=== PATIENT | female | born 1985 | race African-American/Black ===

== ENCOUNTER 2019-06-21 13:00 | Emergency (ER) | payer SELFPAY ==
[~2019-06-21] VITALS: Ht 157.5 cm; Wt 90.7 kg
[~2019-06-21 13:00] MED LIST: ALBUTEROL SULF8.5 GM INH; AZITHROMYCIN250 MG ORAL; CEPHALEXIN500 MG ORAL
[2019-06-21 13:24] VITALS: BP 126/86
--- NOTE | 2019-06-21 13:49 | Emergency Room Report ---
History of Present Illness General Chief Complaint: Lower Back Pain or Injury Source: Patient Present Illness HPI 33-year-old female presents to the emergency department complaining of 6 out of 10 severity progressive left lower lumbar back and left gluteal pain with tenderness since yesterday. Patient reports she slipped on some wet floor yesterday and she had to balance and grab herself before she fell. Patient reports that she had acute onset of her symptoms afterwards which have progressed overnight. Patient states she took some Motrin with minimal relief. She reports pain is exacerbated upon lying flat or attempting to bend forward. She denies saddle anesthesia, urinary retention or incontinence. Patient denies paresthesias in the lower extremities. Patient denies midline neck or back pain. No other aggravating or relieving factors at this time. She denies . She denies suspicion of . She Denies previous back injuries. COVID-19 risk:Travel to affect: No Has patient experienced ponce: No Allergies: Coded Allergies: No Known Allergies (Unverified , 06/21/19) Patient History Past Medical History: see triage record Past Surgical History: none Pertinent Family History: none Last Menstrual Period: 06/11/19 Now: No Reviewed Nursing Documentation: PMH: Agreed; PSxH: Agreed Nursing Documentation-PMH Past Medical History: No History, Except For Hx Hypertension: Yes Review of Systems All Other Systems: negative except mentioned in HPI Physical Exam Vital Signs Date Time Temp Pulse Resp B/P (MAP) Pulse Ox O2 Delivery O2 Flow Rate FiO2 06/21/19 13:24 98.6 77 15 126/86 (99) 99 Room Air Sp02 EP Interpretation: reviewed, normal General Appearance: no apparent distress, alert, GCS 15, non-toxic Head: normocephalic, atraumatic Eyes: bilateral eye normal inspection, bilateral eye PERRL ENT: hearing grossly normal, normal voice Neck: full range of motion Respiratory: lungs clear, normal breath sounds, speaking full sentences Cardiovascular #1: regular rate, rhythm Gastrointestinal: non tender, soft, non-distended Genitourinary: normal inspection, no CVA tenderness Musculoskeletal: normal range of motion, gait/station normal, tender - Left paraspinal and upper gluteal TTP, FROM with exacerbation of pain temporarily in certain flexed positions, no LE weakness, pt. is NVI, no erythema, midline bony ttp, step-offs or obvious deformity. Neurologic: alert, motor strength/tone normal, oriented x3, sensory intact, responsive, speech normal Psychiatric: judgement/insight normal Skin: normal color Lymphatic: no adenopathy Medical Decision Making PA Attestation Dr. Crenshaw Is my supervising Physician whom patient management has been discussed with. Diagnostic Impression: Primary Impression: Lumbosacral strain Qualified Codes: S39.012A - Strain of muscle, fascia and tendon of lower back , initial encounter ER Course 33-year-old female presents to the emergency department complaining of 6 out of 10 severity progressive left lower lumbar back and left gluteal pain with tenderness since yesterday. Patient reports she slipped on some wet floor yesterday and she had to balance and grab herself before she fell. Patient reports that she had acute onset of her symptoms afterwards which have progressed overnight. Patient states she took some Motrin with minimal relief. She reports pain is exacerbated upon lying flat or attempting to bend forward. She denies saddle anesthesia, urinary retention or incontinence. Patient denies paresthesias in the lower extremities. Patient denies midline neck or back pain. No other aggravating or relieving factors at this time. She denies . She denies suspicion of . She Denies previous back injuries. Ddx considered: epidural abscess, fracture, sprain/strain, meningitis, spinal chord injury, sciatica, cauda equina, Pyelonephritis, renal calculi just to name a few. Vital signs reviewed and are WNL during ED visit. Pt. is afebrile with no signs of infection No new symptoms, and denies recent trauma. No saddle anesthesia noted, Pt. denies incontinence Neurovascular is intact ROM is limited due to pain- exacerbated with forward flexion * Mild Tenderness to palpation to paraspinal muscles of the left lower back without midline tenderness. *Pt. describes pain today as moderate and radiates across the lower back. ORDERS: -Urine HCG: Negative INTERVENTIONS: -600IBU PO -I do not identify an emergent condition at this time. With current presentation , pt. is stable for close outpatient follow up and conservative treatment. D/ w pt. to return promptly to ED with worsening or new symptoms.- Pt. verbalizes' understanding and agreement with proposed treatment plan. DISCHARGE: At this time pt. is stable for d/c to home. Will provide printed patient care instructions, and any necessary prescriptions. Care plan and follow up instructions have been discussed with the patient prior to discharge. Labs Test 06/21/19 13:30 Urine HCG, Qualitative Negative (NEGATIVE) Last Vital Signs Date Time Temp Pulse Resp B/P (MAP) Pulse Ox O2 Delivery O2 Flow Rate FiO2 06/21/19 13:24 98.6 77 15 126/86 (99) 99 Room Air Disposition: HOME, SELF-CARE Condition: Stable Scripts Ibuprofen* (MOTRIN*) 600 Mg Tablet 600 MG ORAL THREE TIMES A DAY, #30 TAB 0 Refills Prov: Jo Daniel 06/21/19 Methocarbamol* (ROBAXIN-750*) 750 Mg Tablet 750 MG PO TID for 7 Days, #21 TAB 0 Refills Prov: Jo Daniel 06/21/19 Lidocaine Patch* (Lidoderm Patch*) 1 Each Adh..patch 1 PATCH TOPIC DAILY, #30 PATCH 0 Refills Patch(es) may remain in place for up to 12 hours in any 24-hour period. Prov: Jo Daniel 06/21/19 Referrals: Lali Walters. [facility] Departure Forms: Return to Work Return to Work Date: Jun 25, 2019 Work Restrictions: None Other Restrictions: May return Sooner if Symptoms have resolved. Return to Full Activity: Jun 25, 2019 Patient Instructions: Lumbosacral Strain Additional Instructions: Take medications as directed. Do not drink alcohol, drive, or operate heavy machinery while taking Robaxin ( Muscle Relaxers) as this may cause drowsiness. Follow up with a Primary Care Provider in 3-5 days, even if your symptoms have resolved. --Please review list of primary care clinics, if you do not already have a primary care provider Return sooner to ED if new symptoms occur, or current symptoms become worse. - Please note that this Emergency Department Report was dictated using [employer] technology software, occasionally this can lead to erroneous entry secondary to interpretation by the dictation equipment. Jo Daniel Jun 21, 2019 13:49
[2019-06-21] MEDS ORDERED: IBUPROFEN600 MG ORAL (13:51)
[2019-06-21] MEDS ORDERED: LIDODERM700 M1 TOPIC (13:51)
[2019-06-21] MEDS ORDERED: ROBAXIN-750750 MG PO (13:51)
--- NOTE | 2019-06-21 14:00 | NUR ---
ED Nurse Note: Pt walked in from home c/o lower back and left knee pain since yesterday. Pt denies fall/injury. Pt reports trying to prevent a fall, so she hurt herself. Respirations even and unalbored on room air.
[2019-06-21 14:15] VITALS: BP 123/84
--- NOTE | 2019-06-21 14:15 | NUR ---
ER DISCHARGE NOTE: Patient is cleared to be discharged per ERMD, pt is aox4, on room air, with stable vital signs as documented. pt was given dc and prescription instructions and was able to verbalize understanding, pt id band removed. pt is able to ambulate with steady gait. pt took all belongings.
== END 2019-06-21 14:15 | disposition home or self-care (01) ==
LOC: EMR 13:51
DX: S39.012A Strain of muscle, fascia and tendon of lower back, initial encounter (principal); W18.40XA Slipping, tripping and stumbling without falling, unspecified, initial encounter; Y92.9 Unspecified place or not applicable; I10 Essential (primary) hypertension
CPT/HCPCS: 81025; 99282

== ENCOUNTER 2019-11-17 10:39 | Emergency (ER) | payer MEDICAID, OTHER ==
[~2019-11-17] VITALS: Ht 157.5 cm; Wt 97.5 kg
[~2019-11-17 10:39] MED LIST changes: +IBUPROFEN600 MG ORAL; +LIDODERM700 M1 TOPIC; +ROBAXIN-750750 MG PO
[2019-11-17 10:58] VITALS: BP 134/75
[2019-11-17] MEDS ORDERED: LIDODERM700 M1 TOPIC (11:10)
[2019-11-17] MEDS ORDERED: ROBAXIN-750750 MG PO (11:10)
[2019-11-17] MEDS ORDERED: IBUPROFEN600 M1 ORAL (11:10)
[2019-11-17] MEDS ORDERED: TYLENOL325 MG ORAL (11:10)
--- NOTE | 2019-11-17 11:11 | Emergency Room Report ---
History of Present Illness General Chief Complaint: Pain Source: Patient Present Illness HPI 34-year-old female no past medical history no surgical history presents with a slip and fall she did not officially fall she caught herself, she slipped on water yesterday, she endorses sharp knee pain, left lower back pain aggravated with movement alleviated threat severity is moderate, intermittent no perineal numbness no weakness, no bowel bladder retention/incontinence patient presents for evaluation and treatment Allergies: Coded Allergies: No Known Allergies (Unverified , 06/21/19) COVID-19 Screening Contact w/high risk pt: No Experienced COVID-19 symptoms?: No COVID-19 Testing performed 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 Patient History Past Medical History: see triage record Last Menstrual Period: 11/05/19 Now: No : 3 Para: 2 Reviewed Nursing Documentation: PMH: Agreed; PSxH: Agreed Nursing Documentation-PMH Past Medical History: No History, Except For Hx Hypertension: Yes Review of Systems All Other Systems: negative except mentioned in HPI Physical Exam Vital Signs Date Time Temp Pulse Resp B/P (MAP) Pulse Ox O2 Delivery O2 Flow Rate FiO2 11/17/19 10:42 98.1 86 18 134/75 (94) 99 Room Air General Appearance: well appearing, no apparent distress Head: normocephalic, atraumatic ENT: hearing grossly normal, normal voice Neck: full range of motion, supple Respiratory: no respiratory distress, speaking full sentences Musculoskeletal: gait/station normal, other - Back: No midline tenderness no step-offs, tenderness to palpation left lateral lower back, knee: Anterior posterior drawer negative, no swelling, valgus varus stress negative Neurologic: alert, normal gait Psychiatric: mood/affect normal Skin: no rash Medical Decision Making Diagnostic Impression: Primary Impression: Low back pain Qualified Codes: M54.5 - Low back pain Additional Impression: Knee strain Qualified Codes: S86.912A - Strain of unspecified muscle(s) and tendon(s) at lower leg level, left leg, initial encounter ER Course 34-year-old female presents with left lower back pain, muscle strain most likely , left knee pain unremarkable, most likely a knee strain, no evidence of fracture dislocation Supportive care work note, patient provided with Tylenol and Motrin Follow-up with PCP Last Vital Signs Date Time Temp Pulse Resp B/P (MAP) Pulse Ox O2 Delivery O2 Flow Rate FiO2 11/17/19 10:58 98.1 18 134/75 99 Room Air 11/17/19 10:42 86 Disposition: HOME, SELF-CARE Condition: Stable Scripts Lidocaine Patch* (Lidoderm Patch*) 1 Each Adh..patch 1 PATCH TOPIC DAILY, #7 PATCH 0 Refills Patch(es) may remain in place for up to 12 hours in any 24-hour period. Prov: Mikhail Paris MD 11/17/19 Methocarbamol* (ROBAXIN-750*) 750 Mg Tablet 750 MG PO QID, #28 TAB 0 Refills Prov: Mikhail Paris MD 11/17/19 Acetaminophen (Tylenol) 325 Mg Tablet 650 MG ORAL Q6H PRN for Prn Pain/Headache/Temp > 101, #30 TAB 0 Refills Prov: Mikhail Paris MD 11/17/19 Ibuprofen* (MOTRIN*) 600 Mg Tablet 600 MG ORAL THREE TIMES A DAY, #30 TAB Prov: Mikhail Paris MD 11/17/19 Referrals: [facility] Fri[facility]. [facility] Departure Forms: Return to Work Return to Work Date: Nov 21, 2019 Patient Instructions: Back Pain, Adult, [id number], Muscle Strain, Easy-to- Read Additional Instructions: The patient was provided with discharge instructions, notified to follow-up with a primary care doctor and or specialist in the next 24-48 hours, and to return to the ED if they have worsening of their symptoms. Please note that this report is being documented using [employer] technology. This can lead to erroneous entry secondary to incorrect interpretation by the dictating instrument. Mikhail Paris MD Nov 17, 2019 11:11
[2019-11-17 11:20] VITALS: BP 134/75
== END 2019-11-17 11:30 | disposition home or self-care (01) ==
LOC: EMR 10:50
DX: M54.5 Low back pain (principal); S86.912A Strain of unspecified muscle(s) and tendon(s) at lower leg level, left leg, initial encounter; I10 Essential (primary) hypertension; W01.0XXA Fall on same level from slipping, tripping and stumbling without subsequent striking against object, initial encounter; Y93.89 Activity, other specified; Y92.9 Unspecified place or not applicable
CPT/HCPCS: 81025; Z7502; 99282

== ENCOUNTER 2020-01-09 12:43 | Emergency (ER) | payer MEDICAID ==
[~2020-01-09] VITALS: Ht 160 cm; Wt 99.8 kg
[~2020-01-09 12:43] MED LIST changes: +IBUPROFEN600 M1 ORAL; +TYLENOL325 MG ORAL
[2020-01-09 13:40] VITALS: BP 114/76
[2020-01-09] MEDS ORDERED: LIDODERM700 M1 TOPIC (14:01)
[2020-01-09] MEDS ORDERED: ROBAXIN-750750 MG PO (14:01)
[2020-01-09] MEDS ORDERED: TYLENOL325 MG ORAL (14:01)
[2020-01-09] MEDS ORDERED: NAPROXEN250 MG ORAL (14:01)
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
[2020-01-09 14:05] VITALS: BP 122/70
== END 2020-01-09 14:05 | disposition home or self-care (01) ==
LOC: EMR 13:58
DX: M54.5 Low back pain (principal); V43.52XA Car driver injured in collision with other type car in traffic accident, initial encounter; Y92.410 Unspecified street and highway as the place of occurrence of the external cause; I10 Essential (primary) hypertension
CPT/HCPCS: 99282

== ENCOUNTER 2020-01-28 14:38 | Emergency (ER) | payer MEDICAID ==
[~2020-01-28] VITALS: Ht 157.5 cm; Wt 99.8 kg
[~2020-01-28 14:38] MED LIST changes: +NAPROXEN250 MG ORAL
[2020-01-28 14:55] VITALS: BP 125/81
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
[2020-01-28] MEDS ORDERED: Ketorolac 30mg Inj IM ONE (15:15)
[2020-01-28] MEDS ORDERED: Methocarbamol 750mg tab ORAL ONE (15:15)
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
--- NOTE | 2020-01-28 16:05 | NUR ---
ED Nurse Note: Pt returned from CT.
--- NOTE | 2020-01-28 16:44 | Diagnostic Imaging Report ---
History: TRAUMA Exam: CT L SPINE Without Contrast Technique more: CTDI is 18.9 mGy and DLP is 534.9 mGy-cm. Technique more: One or more of the following dose reduction techniques were used: automated exposure control, adjustment of the mA and/or kV according to patient size, use of iterative reconstruction technique. Comparison: None available FINDINGS: No fracture or malalignment. For nomenclature purposes L5 is partially sacralized. The disc spaces appear within limits. No CT evidence of significant appearing central or foraminal narrowing identified. Mild lower lumbar facet spondylosis. The visualized retroperitoneal structures appear within limits. IMPRESSION: No fracture or malalignment. The disc spaces appear within limits. No CT evidence of significant appearing central or foraminal narrowing identified. Mild lower lumbar facet spondylosis.
[2020-01-28] MEDS ORDERED: CYCLOBENZAPRINE10 MG ORAL (16:46)
[2020-01-28] MEDS ORDERED: IBU800 MG PO (16:46)
[2020-01-28] MEDS ORDERED: PREDNISONE20 MG ORAL (16:46)
[2020-01-28] MEDS ORDERED: LIDODERM700 M1 TOPIC (16:46)
[2020-01-28 16:58] VITALS: BP 126/80
--- NOTE | 2020-01-28 16:58 | NUR ---
ER DISCHARGE NOTE: Patient is cleared to be discharged per ERPA, pt is aox4, on room air, with stable vital signs. pt was given dc and prescription instructions, pt was able to verbalize understanding, pt id band removed. pt is able to ambulate with steady gait. pt took all belongings.
== END 2020-01-28 16:58 | disposition home or self-care (01) ==
LOC: EMR 15:01
DX: S39.012A Strain of muscle, fascia and tendon of lower back, initial encounter (principal); X58.XXXA Exposure to other specified factors, initial encounter; Y92.9 Unspecified place or not applicable; I10 Essential (primary) hypertension; E66.9 Obesity, unspecified; M47.816 Spondylosis without myelopathy or radiculopathy, lumbar region
CPT/HCPCS: 72131; 96372; Z7502; 99284

== ENCOUNTER 2020-02-20 07:13 | Emergency (ER) | payer MEDICAID ==
[~2020-02-20] VITALS: Ht 157.5 cm; Wt 99.8 kg
[~2020-02-20 07:13] MED LIST changes: +CYCLOBENZAPRINE10 MG ORAL; +IBU800 MG PO; +PREDNISONE20 MG ORAL
[2020-02-20] MEDS ORDERED: PREDNISONE20 MG ORAL (07:25)
[2020-02-20] MEDS ORDERED: BENADRYL25 MG ORAL (07:25)
[2020-02-20] MEDS ORDERED: FAMOTIDINE20 MG ORAL (07:25)
--- NOTE | 2020-02-20 07:25 | NUR ---
ED Nurse Note: Patient presenst to ER due to worsening itching and swelling all over the body since last night. Patient did not try any meds at home. Patient denies changes in her voice or breathing problem. No audible wheezing, hoarseness or dyspnea noted. Patient using cell phone on bed, scratching the skin intermittently. Patient able to speak full sentence without any problem. Patient states she had some salmon yesterday and denies any allergy to seafood. Patient awake, alert, oriented x 4. Regular, unlabored breathing noted. Bed in lowest position.
[2020-02-20] MEDS ORDERED: DiphenhydrAMINE 50mg/ml Inj IM ONE (07:30)
--- NOTE | 2020-02-20 07:30 | NUR ---
ED Nurse Note: Patient reports taking Clindamycin 150mg one tablet QID for dental since 02/09/20 and ibuprofen 800mg as needed for pain. ERMD notified and advised patient to stop taking Clindamycin at this time. Instructed patient to f/u with dentist and PCP. Patient agreed with plan of care.
--- NOTE | 2020-02-20 07:31 | Emergency Room Report ---
History of Present Illness General Chief Complaint: allergic reactio Source: Patient Present Illness HPI Patient is a 34-year-old female who presents to the ER complaining of allergic reaction. Patient denies any history of allergies. She states that last night she had salmon and broke out in itchy hives. She denies any oral swelling, shortness of breath or chest pain. She has not tried to take any medications. Allergies: Coded Allergies: SHELLFISH DERIVED (Unverified Allergy, Unknown, 02/20/20) Uncoded Allergies: SEAFOOD (Allergy, Unknown, 02/20/20) COVID-19 Screening Contact w/high risk pt: No Experienced COVID-19 symptoms?: No Patient History Reviewed Nursing Documentation: PMH: Agreed; PSxH: Agreed Nursing Documentation-PMH Hx Hypertension: Yes Review of Systems All Other Systems: negative except mentioned in HPI Physical Exam Sp02 EP Interpretation: reviewed, normal General Appearance: no apparent distress, alert, GCS 15, non-toxic Head: normocephalic, atraumatic Eyes: bilateral eye normal inspection, bilateral eye PERRL ENT: hearing grossly normal, normal pharynx, no angioedema, normal voice, moist mucus membranes Neck: full range of motion, supple/symm/no masses Respiratory: chest non-tender, lungs clear, normal breath sounds, speaking full sentences Cardiovascular #1: regular rate, rhythm, no edema Gastrointestinal: normal bowel sounds, non tender, soft, non-distended, no guarding, no rebound Rectal: deferred Musculoskeletal: back normal, normal range of motion, calf tenderness, gait/station normal, non-tender Neurologic: rubber tile floor layer III-XII nml as tested, oriented x3 Psychiatric: no suicidal/homicidal ideation Skin: other - Diffuse urticarial rash with some excoriations Lymphatic: no adenopathy Medical Decision Making Diagnostic Impression: Primary Impression: Allergic reaction ER Course Patient advised to avoid shellfish and seafood until she gets allergy tested. Patient has no intraoral swelling or shortness of breath. Patient given Benadryl, prednisone and Pepcid. Patient will be discharged with the same. After discussing risks and benefits of further diagnostics, treatment plans, as well as indications for and risks of admission, the patient is agreeable to being discharged home. I have explained that their evaluation and treatment in the emergency department today is an important step towards them achieving better health but that their evaluation today is not intended to replace further evaluation and treatment by a physician in their local clinic. I have explained that while the current findings suggest no immediate life threatening emergency they will require further evaluation and treatment by a physician of their choice in their area. They understand that it will be necessary for them to review the final reports of their ED visit with their clinic physician. We have reviewed indications for return to the Emergency Department. I have explained that additional time may need to pass and/or additional testing as an outpatient may be necessary before a definitive diagnosis can be made. They tell me they are willing to follow up as instructed within the timeframe I recommend. They appear to understand what we discussed. Additionally they understand that if they are unable to be seen by an outpatient physician they are welcome, and in fact should, return to the Emergency Department for a repeat evaluation. The patient is stable at time of discharge. Disposition: HOME, SELF-CARE Condition: Stable Scripts Diphenhydramine Hcl* (BENADRYL*) 25 Mg Capsule 25 MG ORAL Q6H PRN for Itching, #20 CAP Prov: Ronel Crenshaw M.D. 02/20/20 Prednisone* (PREDNISONE*) 20 Mg Tablet 60 MG ORAL DAILY, #5 TAB Prov: Ronel Crenshaw M.D. 02/20/20 Famotidine* (Pepcid 20mg tablet*) 20 Mg Tablet 20 MG ORAL TWICE A DAY for Gerd, #60 TAB 0 Refills Prov: Ronel Crenshaw M.D. 02/20/20 Referrals: [facility] Lali Walters. [facility] Patient Instructions: Food Allergy, [id number] Additional Instructions: Please stay away from any seafood or shellfish. You need to obtain allergy testing. As for a referral from your primary care doctor. The patient was provided with discharge instructions, notified to follow-up with a primary care doctor and or specialist in the next 24-48 hours, and to return to the ED if they have worsening of their symptoms. Please note that this report is being documented using [employer] technology. This can lead to erroneous entry secondary to incorrect interpretation by the dictating instrument. Ronel Crenshaw M.D. Feb 20, 2020 07:31
[2020-02-20 07:40] VITALS: BP 144/71
--- NOTE | 2020-02-20 07:40 | NUR ---
ED Nurse Note: Patient is being medically discharged by ERMD. D/C instruction and prescription given. Patient verbalized understanding of it. Patient agreed no driving and no alcohol intake while on meds and will f/u with dentst/PCP. Patient ambulated out with steady gait with all her belongings.
== END 2020-02-20 07:40 | disposition home or self-care (01) ==
LOC: EMR 07:25
DX: T78.40XA Allergy, unspecified, initial encounter (principal); X58.XXXA Exposure to other specified factors, initial encounter; L50.0 Allergic urticaria; I10 Essential (primary) hypertension; Z91.013 Allergy to seafood
CPT/HCPCS: 96372; J1200; J7512; Z7502; 99283